=== PATIENT | female | born 1995 | race Caucasian/White ===

== ENCOUNTER 2018-12-25 00:30 | Emergency (ER) | payer BC ==
[2018-12-25 00:58] VITALS: BMI 38.2
[2018-12-25] MEDS ORDERED: DEXAMETHASONE LIQUID 0.5 MG/5 ML PO ONE (01:17)
[2018-12-25] MEDS ORDERED: IBUPROFEN 600 MG TABLET (FP) PO ONE (01:17)
[2018-12-25] MEDS ORDERED: DEXAMETHASONE SOD PHOSPHATE 10 MG/1 ML VIAL ONE (01:22)
--- NOTE | 2018-12-25 01:23 | PDOC ---
History of Present Illness - General Chief Complaint: Cold Symptoms Stated Complaint: COLD SYMPTOMS, FEVER Time Seen by Provider: 12/25/18 01:07 History Source: Patient Exam Limitations: No Limitations - History of Present Illness Initial Comments: 12/25/18 01:23 HISTORY OF PRESENT ILLNESS: 23-year-old female past medical history of schizoaffective disorder and genital herpes who presents emergency department for evaluation of subjective fevers, nasal congestion, sore throat and was productive cough which has been present for 2 days. Patient reports a recent trip to [place] your she did usual activities nothing out of the ordinary. She denies any presents with prolonged immobility, chest pain, shortness of breath, nausea or vomiting. No recent travel or sick contacts. PAST MEDICAL HISTORY: see HPI SURGICAL HISTORY: Denies ALLERGIES: No known drug allergies REVIEW OF SYSTEMS General/Constitutional: +subjective fever. Denies weakness, weight change. HEENT: Denies change in vision. Denies ear pain or discharge. +sore throat. + nasal congestion. Cardiovascular: Denies chest pain or shortness of breath. Respiratory: Moist productive cough. Denies wheezing, or hemoptysis. Gastrointestinal: Denies nausea, vomiting, diarrhea or constipation. Denies rectal bleeding. Genitourinary: Denies dysuria, frequency, or change in urination. Musculoskeletal: Denies neck or back pain. Skin and breasts: Denies rash or easy bruising. Neurologic: Denies headache, vertigo, loss of consciousness, or loss of sensation. Psychiatric: Denies depression or anxiety. Endocrine: Denies increased thirst. Denies abnormal weight change. Hematologic/Lymphatic: Denies anemia, easy bleeding, or history of blood clots. Allergic/Immunologic: Denies hives or skin allergy. Denies latex allergy. PHYSICAL EXAM General Appearance: Well-appearing, appropriately dressed. No apparent distress , no intoxication. HEENT: EOMI, PERRLA, normal voice, TMs retracted bilaterally. No conjunctival pallor. No photophobia, scleral icterus. Oropharynx erythematous without lesions or exudate. Cobblestoning noted in the posterior. No nasal discharge present. Neck: Supple. Trachea midline. No tenderness, rigidity, carotid bruit, stridor , or thyromegaly. Nontender anterior cervical lymphadenopathy present. Respiratory/Chest: Lungs CTAB. No shortness of breath, chest tenderness, respiratory distress, accessory muscle use. No crackles, rales, rhonchi, stridor , wheezing, dullness Cardiovascular: RRR. S1, S2. No JVD, murmur, bradycardia, tachycardia. Vascular Pulses: Dorsalis-Pedis (R): 2+, Dorsalis-Pedis (L): 2+ Gastrointestinal/Abdominal: Normal bowel sounds. Abdomen soft, non-distended. No tenderness or rebound tenderness. No organomegaly, pulsatile mass, guarding, hernia, hepatomegaly, splenomegaly. Musculoskeletal/Extremities: Normal inspection. FROM of all extremities, normal capillary refill. Pelvis Stable. No CVA tenderness. No tenderness to extremities, pedal edema, swelling, erythema or deformity. Integumentary: Appropriate color, dry, warm. No cyanosis, erythema, jaundice or rash Neurologic: visually impaired teacher II-XII intact. Fully oriented, alert. Appropriate mood/affect. Motor strength 5/5. No appreciable EOM palsy, facial droop or sensory deficit. Is this a multiple visit Asthma Patient?: No Past History - Past Medical History Home Medications: Ambulatory Orders Valacyclovir HCl [Valtrex -] 1,000 mg PO DAILY #7 tablet 12/25/18 - Psycho Social/Smoking Cessation Hx Smoking History: Never smoked Have you smoked in the past 12 months: No Information on smoking cessation initiated: No Hx Alcohol Use: No Drug/Substance Use Hx: No *Physical Exam - Vital Signs Last Vital Signs Temp Pulse Resp BP Pulse Ox 100.4 F H 106 H 20 104/68 97 12/25/18 00:56 12/25/18 00:56 12/25/18 00:56 12/25/18 00:56 12/25/18 00:56 Medical Decision Making - Medical Decision Making 12/25/18 01:22 A/P: 23-year-old woman with viral illness for 1 day. Given patient's history of genital herpes, questionable prodromal symptoms related to an outbreak. Patient without lesions at this time. Supportive treatment has been discussed with the patient prescription for Valtrex 1 g daily to be taken for 7 days been sent to perform pharmacy. I discussed the physical exam findings, ancillary test results and final diagnoses with the patient. I answered all of the patient's questions. The patient was satisfied with the care received and felt comfortable with the discharge plan and treatment plan. The patient will call their primary care physician within 24 hours to arrange follow-up and will return to the Emergency Department with any new, persistent or worsening symptoms. Portions of this note have been documented using voice recognition software. As a result, errors may occur in the healthcare sales representative process. Effort has been made to correct all grammatical and healthcare sales representative error, but some may have been missed. Discharge - Discharge Information Problems reviewed: Yes Clinical Impression/Diagnosis: Viral illness Condition: Fair Disposition: HOME - Admission No - Additional Discharge Information Prescriptions: Valacyclovir HCl [Valtrex -] 1,000 mg PO DAILY #7 tablet - Follow up/Referral - Patient Discharge Instructions Additional Instructions: Rest, drink lots of fluids: Teas, water, soups, Pedialyte Saltwater gargles Steamy showers/seem to face break up mucus Avoid contact with others until fevers and cough resolved Lots of handwashing and good hygiene Valtrex 1gram daily for 7 days Continue [id number] medications for symptomatic relief Tylenol or Motrin for fever and pain Followup with private physician in one to 2 days as needed Return to emergency department for worsened symptoms, fevers, dehydration - Post Discharge Activity
--- NOTE | 2018-12-25 01:32 | PDOC ---
*Physical Exam - Vital Signs Last Vital Signs Temp Pulse Resp BP Pulse Ox 100.4 F H 106 H 20 104/68 97 12/25/18 00:56 12/25/18 00:56 12/25/18 00:56 12/25/18 00:56 12/25/18 00:56 ED Treatment Course - Medications Given in the ED: ED Medications Discontinued Medications Generic Name Dose Route Start Last Admin Trade Name Yesi PRN Reason Stop Dose Admin Dexamethasone 10 mg 12/25/18 01:17 12/25/18 01:30 Decadron Liquid - PO 12/25/18 01:18 10 mg ONCE ONE Administration Ibuprofen 600 mg 12/25/18 01:17 12/25/18 01:30 Motrin - PO 12/25/18 01:18 600 mg ONCE ONE Administration Medical Decision Making - Medical Decision Making 12/25/18 01:31 Case reviewed, agree with assessment and plan Discharge - Discharge Information Problems reviewed: Yes Clinical Impression/Diagnosis: Viral illness Condition: Fair Disposition: HOME - Additional Discharge Information Prescriptions: Valacyclovir HCl [Valtrex -] 1,000 mg PO DAILY #7 tablet - Follow up/Referral - Patient Discharge Instructions Additional Instructions: Rest, drink lots of fluids: Teas, water, soups, Pedialyte Saltwater gargles Steamy showers/seem to face break up mucus Avoid contact with others until fevers and cough resolved Lots of handwashing and good hygiene Valtrex 1gram daily for 7 days Continue [id number] medications for symptomatic relief Tylenol or Motrin for fever and pain Followup with private physician in one to 2 days as needed Return to emergency department for worsened symptoms, fevers, dehydration - Post Discharge Activity
[2018-12-25 04:44] VITALS: BP 115/73; PULSE 96; TEMP 99.6
== END 2018-12-25 01:30 | disposition home or self-care (01) ==
LOC: JER 00:30
DX: J06.9 Acute upper respiratory infection, unspecified (principal); B97.89 Other viral agents as the cause of diseases classified elsewhere; F25.9 Schizoaffective disorder, unspecified; Z86.19 Personal history of other infectious and parasitic diseases
CPT/HCPCS: 99282-25